=== PATIENT | female | born 1985 | race Caucasian/White ===

== ENCOUNTER 2019-08-17 10:09 | Emergency (ER) | payer SELFPAY ==
--- NOTE | 2019-08-17 10:23 | ED.PDOC ---
History of Present Illness - General Time Seen by Provider: 08/17/19 10:12 Additional Information: 34yo female presents for 2-3 days of congestion, sore throat and cough. She states symptoms feel like bronchitis which she has had in the past. She reports positive contact with someone with strep throat. She denies fever, myalgia, or headache. No recent travel. No known COVID-19 contacts. No other reported issues. - History of Present Illness Allergies/Adverse Reactions: Allergies NO KNOWN ALLERGY Allergy (Verified 08/17/19 10:25) Home Medications: Ambulatory Orders Albuterol Sulfate [Albuterol Sulfate Hfa] 108 mcg IN Q6HR PRN #1 aer 08/17/19 Azithromycin 250 mg PO DAILY #6 tab 08/17/19 Cetirizine HCl [ZyrTEC] 10 mg PO DAILY 08/17/19 Prednisone 20 mg PO DAILY #12 tab 08/17/19 Review of Systems - Review of Systems Constitutional: Denies: chills, fever EENTM: States: nose congestion, throat pain. Denies: ear pain Respiratory: States: cough. Denies: short of breath, stridor, wheezing Cardiology: Denies: chest pain, palpitations Gastrointestinal/Abdominal: Denies: abdominal pain, diarrhea, nausea Musculoskeletal: Denies: back pain, joint pain Skin: States: no symptoms reported Neurological: States: no symptoms reported Family Medical History - Family History Mother Family History: Unknown Living Status: Unknown Physical Exam - Physical Exam General Appearance: Alert, Comfortable Eye Exam: bilateral normal ENT Exam: nasal congestion, pharyngeal erythema Neck: non-tender, full range of motion, supple Respiratory: chest non-tender, normal breath sounds, other - Intermittent cough, dry Cardiovascular/Chest: normal peripheral pulses, regular rate, rhythm, no edema Gastrointestinal/Abdominal: non tender, soft Extremity: normal range of motion, non-tender Neurologic: no motor/sensory deficits, alert Skin Exam: normal color, warm/dry Progress - Progress Progress: 08/17/19 12:03 Patient and I were masked during interaction. 6 feet of distance maintained during brief conversation. 08/17/19 12:18 The patient has s/s consistent with viral URI and bronchitis. She is afebrile and not SOB. We discussed risks of COVID-19 in context of the pandemic and appropriate self quarantine instructions, as well as follow up pathways if she desires testing. The patient expressed understanding. Return warnings discussed. It was a pleasure to care for this patient today. 08/17/19 12:19 Jose M Guerra MD. #[id number] 08/17/19 12:20 - Results/Orders Results/Orders: 08/17/19 10:30 STREP A SCREEN CULTURE Stat Laboratory Results - last 24 hr 08/17/19 10:30 Group A Strep Rapid Negative Influenza Neg - EKG/XRAY/CT XRAY: chest - No acute findings. See formal read. Departure - Departure Clinical Impression: Cough Upper respiratory infection Qualifiers: URI type: unspecified URI Qualified Code(s): J06.9 - Acute upper respiratory infection, unspecified Time of Disposition: 12:05 Disposition: Discharge to Home or Self Care Condition: Good Instructions: Viral Upper Respiratory Infection, Adult (DC) Prescriptions: Albuterol Sulfate [Albuterol Sulfate Hfa] 108 mcg IN Q6HR PRN #1 aer PRN Reason: Wheezing Azithromycin 250 mg PO DAILY #6 tab Prednisone 20 mg PO DAILY #12 tab Home Medications: Ambulatory Orders Albuterol Sulfate [Albuterol Sulfate Hfa] 108 mcg IN Q6HR PRN #1 aer 08/17/19 Azithromycin 250 mg PO DAILY #6 tab 08/17/19 Cetirizine HCl [ZyrTEC] 10 mg PO DAILY 08/17/19 Prednisone 20 mg PO DAILY #12 tab 08/17/19 Additional Instructions: Given your symptoms COVID-19 is not ruled out today. Recommend self quarantine and follow up with a PCP or [facility] department for ongoing assessment.
--- NOTE | 2019-08-17 10:56 | RAD ---
EXAM DESCRIPTION: Chest,1 View CLINICAL HISTORY: cough COMPARISON: 23 November 2008 TECHNIQUE: AP portable chest FINDINGS: The chest is hyperexpanded. The lungs are clear. The heart is within range of normal. IMPRESSION: The chest is hyperexpanded and otherwise normal. Electronically signed by: Haim Jarrell MD 08/17/2019 10:54 AM CDT
[2019-08-17 12:19] VITALS: BP 94/53; TEMP 98.6; O2SAT 97
== END 2019-08-17 12:19 | disposition home or self-care (01) ==
LOC: ER 10:09
DX: J06.9 Acute upper respiratory infection, unspecified (principal)